=== PATIENT | female | born 1975 | race Caucasian/White ===

== ENCOUNTER 2017-05-14 15:31 | Emergency (ER) | payer MEDICAID, OTHER ==
[~2017-05-14] VITALS: Ht 160 cm; Wt 51.5 kg
[2017-05-14 15:34] VITALS: Ht 160 cm; Wt 51.5 kg
[2017-05-14] MEDS ORDERED: morphine 4 MG/ML VIAL IV STA (17:17)
[2017-05-14] MEDS ORDERED: ONDANSETRON 4 MG INJ IV STA (17:17)
[2017-05-14 18:21] LABS: BASOPHIL # 0.1 10^3/ul (0.0-0.1); BASOPHILS % 0.4 % (0.0-2.0); EOSINOPHILS # 0.2 10^3/ul (0.0-0.5); EOSINOPHILS % 1.9 % (0.0-7.0); HEMATOCRIT 40.6 % (37.0-47.0); HEMOGLOBIN 13.5 g/dl (12.0-16.0); LYMPHOCYTES # 3.1 10^3/ul (0.8-2.9); LYMPHOCYTES % 25.8 % (15.0-51.0); MEAN CORPUSCULAR HEMOGLOBIN 30.9 pg (29.0-33.0); MEAN CORPUSCULAR HGB CONC 33.3 g/dl (32.0-37.0); MEAN CORPUSCULAR VOLUME 92.9 fl (82.0-101.0); MEAN PLATELET VOLUME 10.6 fl (7.4-10.4); MONOCYTE # 0.5 10^3/ul (0.3-0.9); MONOCYTES % 4.4 % (0.0-11.0); NEUTROPHIL # 8.1 10^3/ul (1.6-7.5); NEUTROPHILS % 67.2 % (39.0-77.0); PLATELET COUNT 299 10^3/UL (140-415); RED BLOOD COUNT 4.37 10^6/ul (4.20-5.40); RED CELL DISTRIBUTION WIDTH 13.9 % (11.5-14.5); WHITE BLOOD COUNT 12.1 10^3/ul (4.8-10.8)
[2017-05-14 18:42] LABS: ALBUMIN 4.8 g/dl (3.3-4.9); ALBUMIN/GLOBULIN RATIO 1.54; BILIRUBIN,INDIRECT 0.6 mg/dl (0-1.1); BILIRUBIN,TOTAL 0.6 mg/dl (0.2-1.3); CALCIUM 9.7 mg/dl (8.4-10.2); CREATININE 0.83 mg/dl (0.44-1.00); POTASSIUM 4.1 mmol/L (3.5-5.1); TOTAL PROTEIN 7.9 g/dl (6.1-8.1)
[2017-05-14 18:46] LABS: ADD UMIC YES; UR ASCORBIC ACID NEGATIVE (NEGATIVE); UR BILIRUBIN (Dip) NEGATIVE (NEGATIVE); UR BLOOD (Dip) NEGATIVE (NEGATIVE); UR CLARITY SLIGHTLY CLOUDY (CLEAR); UR COLOR YELLOW (YELLOW); UR GLUCOSE (Dip) NEGATIVE (NEGATIVE); UR KETONES (Dip) 1+ mg/dL (NEGATIVE); UR LEUKOCYTE ESTERASE (Dip) 2+ Leu/ul (NEGATIVE); UR MUCUS FEW /HPF (NONE SEEN); UR NITRITE (Dip) NEGATIVE (NEGATIVE); UR RBC 4 /HPF (0-5); UR SPECIFIC GRAVITY (Dip) 1.028 (1.003-1.030); UR SQUAMOUS EPITHELIAL CELL FEW /HPF (FEW); UR TOTAL PROTEIN (Dip) 1+ mg/dl (NEGATIVE); UR UROBILINOGEN (Dip) 1+ mg/dL (NEGATIVE)
[2017-05-14] MEDS ORDERED: SOD CHLORIDE 0.9% 100 ML ONE (19:27)
[2017-05-14] MEDS ORDERED: IOHEXOL 300MG/ML 150 ML BTL ONE (19:27)
[2017-05-14] MEDS ORDERED: DIPHENHYDRAMINE 50 MG INJ IV ONE (20:30)
--- NOTE | 2017-05-14 20:33 | RADRPT ---
PROCEDURE: CT Abdomen and Pelvis with contrast. CLINICAL INDICATION: Abdominal pain TECHNIQUE: CT scan of the abdomen and pelvis with contrast was performed on a multi-detector high- resolution CT scanner. The patient was scanned following the uncomplicated intravenous administrati on of 90 cc of Omnipaque-300 Coronal and sagittal reformatted images were obtained from the axial s ource images. Images were reviewed on a high-resolution PACS workstation. The total exam CTDI equals 4.65 mGy and the total exam DLP equals 253.57 mGy-cm. One or more of the following dose reduction techniques were used: Automated exposure control. Adjustment of the mA and/or kV according to patient size. Use of iterative reconstruction technique. COMPARISON: CT abdomen and pelvis 01/21/2009 FINDINGS: CT abdomen: The lung bases are clear. The heart size is normal, without pericardial thickening or effusion. Th e liver is normal in size and density without focal mass or intrahepatic biliary dilatation. The sp poli is normal in size and homogeneous in density. The stomach is partially collapsed, but is gross ly unremarkable. The pancreas as visualized is normal. The gallbladder is unremarkable. There is no evidence for biliary dilatation. The adrenal glands are symmetric and normal. The kidneys are s ymmetrically unremarkable as well. No renal calculus or obstructive uropathy or mass lesion is seen . The aorta is of normal caliber. There is no retroperitoneal lymphadenopathy. The nava hepatis israel on is clear. The bowel and mesentery, as visualized, are equally unremarkable. CT pelvis: The small bowel loops situated within the pelvis are unremarkable. The appendix is normal. There is asymmetric enlargement of the right with two adjacent hypodensity measures up to 3 cm. The pelvic o rgans are normal. The pelvic sidewalls and inguinal regions are clear. The sigmoid colon and rectu m are unremarkable. No mass, lymphadenopathy, or free fluid is seen. No acute inflammation is seen . The bladder is normal. The surrounding osseous structures are unremarkable. No osteolytic or ost eoblastic lesion is detected. IMPRESSION: 1. No mass, lymphadenopathy, or focal acute inflammatory process is identified. 2. Normal appendix. 3. Prominent right ovary with two dominant cystic structures measures up to 3 cm likely representin g ovarian cysts. RPTAT: HHO .Gerardo Andersen MD, MD Date Time Electronically viewed and signed by .Gerardo Andersen MD, MD on 05/14/2017 20:33 .O/
[2017-05-14] MEDS ORDERED: KETOROLAC 30 MG INJ IV STA (20:45)
[2017-05-14] MEDS ORDERED: IBUP-1542 PO (20:47)
[2017-05-14] MEDS ORDERED: CEPH-443 PO (20:47)
[2017-05-14] MEDS ORDERED: HYDR-906 PO (20:47)
--- NOTE | 2017-05-14 20:51 | ERD ---
ER Documentation Chief Complaint Date/Time DATE: 05/14/17 TIME: 20:49 Chief Complaint right lower abdominal pain x 4 days HPI This 41-year-old female presents with right lower abdominal pain or pelvic pain for last 4 days. She thought she pulled a muscle in getting out of bed but the pain persists. She feels possibly chills. She has dysuria, vaginal discharge or bleeding. Last menstrual period was 2 weeks ago. ROS All systems reviewed and are negative except as per history of present illness. Medications Home Meds Active Scripts Cephalexin* (Keflex*) 500 Mg Capsule, 500 MG PO QID for 5 Days, CAP Prov:RAUL GUARDADO MD 05/14/17 Hydrocodone/Acetaminophen ([place] 5-325 Tablet) 1 Each Tablet, 1 TAB PO Q6H Y for PAIN, #7 TAB Prov:RAUL GUARDADO MD 05/14/17 Ibuprofen* (Motrin*) 600 Mg Tab, 600 MG PO Q6, #20 TAB Prov:RAUL GUARDADO MD 05/14/17 Allergies Allergies: Coded Allergies: No Known Drug Allergy (Verified Allergy, Unknown, 02/21/14) PMhx/Soc Medical and Surgical Hx: pt denies Surgical Hx History of Surgery: No Anesthesia Reaction: No Hx Neurological Disorder: No Hx Respiratory Disorders: No Hx Cardiac Disorders: No Hx Psychiatric Problems: No Hx Miscellaneous Medical Probl: Yes (fibromyalgia) Hx Alcohol Use: No Hx Substance Use: Yes (marijuana) Hx Tobacco Use: No Physical Exam Vitals Vital Signs Date Time Temp Pulse Resp B/P Pulse Ox O2 Delivery O2 Flow Rate FiO2 05/14/17 15:34 98.3 160 18 131/93 99 Physical Exam Const: [], [id number]-[id number] per Head: Atraumatic Eyes: Normal Conjunctiva ENT: Normal External Ears, Nose and Mouth. Neck: Full range of motion..~ No meningismus. Resp: Clear to auscultation bilaterally Cardio: Regular rate and rhythm, no murmurs Abd: Tender in the right groin area. No exquisite tenderness at McBurney's point no rebound no Allen sign. Positive pain with external rotation of the right hip., non distended. Normal bowel sounds Skin: No petechiae or rashes Back: No midline or flank tenderness Ext: No cyanosis, or edema Neur: Awake and alert Psych: Normal Mood and Affect Result Diagram: 05/14/17180905/14/171809 Results 24 hrs Laboratory Tests Test 05/14/17 18:10 White Blood Count 12.110^3/ul Red Blood Count 4.3710^6/ul Hemoglobin 13.5g/dl Hematocrit 40.6% Mean Corpuscular Volume 92.9fl Mean Corpuscular Hemoglobin 30.9pg Mean Corpuscular Hemoglobin Concent 33.3g/dl Red Cell Distribution Width 13.9% Platelet Count 99459^3/UL Mean Platelet Volume 10.6fl Neutrophils % 67.2% Lymphocytes % 25.8% Monocytes % 4.4% Eosinophils % 1.9% Basophils % 0.4% Nucleated Red Blood Cells % 0.0/100WBC Neutrophils # 8.110^3/ul Lymphocytes # 3.110^3/ul Monocytes # 0.510^3/ul Eosinophils # 0.210^3/ul Basophils # 0.110^3/ul Nucleated Red Blood Cells # 0.010^3/ul Urine Color YELLOW Urine Clarity SLIGHTLY CLOUDY Urine pH 5.0 Urine Specific [place] 1.028 Urine Ketones 1+mg/dL Urine Nitrite NEGATIVEmg/dL Urine Bilirubin NEGATIVEmg/dL Urine Urobilinogen 1+mg/dL Urine Leukocyte Esterase 2+Franky/ul Urine Microscopic RBC 4/HPF Urine Microscopic WBC 4/HPF Urine Squamous Epithelial Cells FEW/HPF Urine Mucus FEW/HPF Urine Hemoglobin NEGATIVEmg/dL Urine Glucose NEGATIVEmg/dL Urine Total Protein 1+mg/dl Sodium Level 139mmol/L Potassium Level 4.1mmol/L Chloride Level 104mmol/L Carbon Dioxide Level 26mmol/L Anion Gap 13 Blood Urea Nitrogen 16mg/dl Creatinine 0.83mg/dl Glucose Level 84mg/dl Calcium Level 9.7mg/dl Total Bilirubin 0.6mg/dl Direct Bilirubin 0.00mg/dl Indirect Bilirubin 0.6mg/dl Aspartate Amino Transf (AST/SGOT) 19IU/L Alanine Aminotransferase (ALT/SGPT) 29IU/L Alkaline Phosphatase 52IU/L Total Protein 7.9g/dl Albumin 4.8g/dl Globulin 3.10g/dl Albumin/Globulin Ratio 1.54 Lipase 89U/L Current Medications Medications (Trade) Dose Ordered Sig/Shani Route PRN Reason Start Time Stop Time Status Last Admin Dose Admin Morphine Sulfate (morphine) 4 mg ONCE STAT IV 05/14/17 17:17 05/14/17 17:22 DC 05/14/17 18:15 Ondansetron HCl (Zofran Inj) 4 mg ONCE STAT IV 05/14/17 17:17 05/14/17 17:22 DC 05/14/17 18:16 IV Flush 10 ml 10 ml STK-MED ONCE .ROUTE 05/14/17 19:27 05/14/17 19:28 DC 05/14/17 19:34 Sodium Chloride (NS) 100 ml @ ud STK-MED ONCE .ROUTE 05/14/17 19:27 05/14/17 19:28 DC 05/14/17 19:34 Iohexol (Omnipaque 300mg/ ml) 150 ml STK-MED ONCE .ROUTE 05/14/17 19:27 05/14/17 19:28 DC 05/14/17 19:34 Diphenhydramine HCl (Benadryl) 25 mg ONCE ONCE IV 05/14/17 20:30 05/14/17 20:31 DC 05/14/17 20:16 Cephalexin (Keflex) 500 mg ONCE ONCE PO 05/14/17 21:00 05/14/17 21:01 Ketorolac Tromethamine (Toradol) 30 mg ONCE STAT IV 05/14/17 20:45 05/14/17 20:46 DC Procedures/MDM Procedures or blood count of 12.1. CMP is normal. Urine shows positive signs of infection. HCG is negative. Patient was given morphine 1 mg IV and Zofran 4 mg IV. Given the uncertain cause a right lower quadrant pain and leukocytosis CT abdomen pelvis was performed which shows what appear to be 2 ovarian cysts in the right pelvis. There is no findings of sent for ovarian torsion, tubo-ovarian abscess, appendicitis. Patient felt better after observation treatment. She was given Keflex 500 mg by mouth and Toradol 30 mg IV. Patient was discharged home with short course of [place], ibuprofen and Keflex and primary care follow-up and return precautions. The patient was stable with no new complaints during the ER course. Clinically, there is no current evidence to suggest meningitis, sepsis, acute abdomen, pneumonia, acute coronary syndrome, pulmonary embolism, or any other emergent condition appearing to require further evaluation or hospitalization. The patient should certainly return for any new or worsening symptoms per the aftercare instructions. They should otherwise follow-up with her primary care doctor for reevaluation this week. Departure Diagnosis: Primary Impression: Ovarian cyst Laterality: right Qualified Code: N83.201 - Cyst of right ovary Additional Impressions: UTI (urinary tract infection) Urinary tract infection type: acute cystitis Hematuria presence: without hematuria Qualified Code: N30.00 - Acute cystitis without hematuria Abdominal pain Abdominal location: right lower quadrant Qualified Code: R10.31 - Right lower quadrant abdominal pain Condition: Stable Patient Instructions: Understanding Urinary Tract Infections (UTIs), Ovarian Cyst Additional Instructions: May be from urinary tract infection or ovarian cyst which should resolve over the next few days. Recheck for fevers, vomiting, worsening pain, new worsening symptoms. RAUL GUARDADO MD May 14, 2017 20:51
[2017-05-14] MEDS ORDERED: CEPHALEXIN 500 MG CAP PO ONE (21:00)
[2017-05-14 21:43] VITALS: BP 120/78; PULSE 70; RESP 18; TEMP 98.2
== END 2017-05-14 21:44 | disposition home or self-care (01) ==
LOC: FTE 15:31
DX: N83.201 Unspecified ovarian cyst, right side (principal); N30.00 Acute cystitis without hematuria; R10.2 Pelvic and perineal pain
CPT/HCPCS: 74177; 80053; 81001; 83690; 85025; 93005; J1200; J1885; J2270; J2405; Q9967; Z7610; 36415; 96374; 96375

== ENCOUNTER 2017-05-17 17:05 | Emergency (ER) | payer OTHER ==
[~2017-05-17] VITALS: Ht 152.4 cm; Wt 52.0 kg
[~2017-05-17 17:05] MED LIST: CEPH-443 PO; HYDR-906 PO; IBUP-1542 PO
[2017-05-17 17:06] VITALS: Ht 152.4 cm; Wt 52.0 kg
[2017-05-17] MEDS ORDERED: morphine 4 MG/ML VIAL IV STA (17:26)
[2017-05-17] MEDS ORDERED: ONDANSETRON 4 MG INJ IV STA (17:26)
--- NOTE | 2017-05-17 17:51 | ERD ---
ER Documentation Chief Complaint Date/Time DATE: 05/17/17 TIME: 17:47 Chief Complaint Pt presents with pelvic pain X 6 days. seen weds dx rupture cyst. HPI 41-year-old female presents to the emergency department complaining of right- sided pelvic pain for the past 6 days. Patient evaluated at this facility and received a CT which was unremarkable for acute abdomen on and was diagnosed with ovarian cyst. She states that she followed up with her [facility] [employer] for an ultrasound which will be next Friday. Patient states the pain is moderate to severe, constant pain in the right lower pelvic region. Patient denies any nausea, vomiting or diarrhea constipation, fevers. Patient has been taking Keflex for a urinary tract infection was diagnosed by her physician ROS All systems reviewed and are negative except as per history of present illness. Medications Home Meds Active Scripts Ibuprofen* (Motrin*) 600 Mg Tab, 600 MG PO Q6H Y for PAIN AND OR ELEVATED TEMP, #30 TAB Prov:SAMUEL GRIMES PA-C 05/17/17 Cephalexin* (Keflex*) 500 Mg Capsule, 500 MG PO QID for 5 Days, CAP Prov:RAUL GUARDADO MD 05/14/17 Hydrocodone/Acetaminophen ([place] 5-325 Tablet) 1 Each Tablet, 1 TAB PO Q6H Y for PAIN, #7 TAB Prov:RAUL GUARDADO MD 05/14/17 Ibuprofen* (Motrin*) 600 Mg Tab, 600 MG PO Q6, #20 TAB Prov:RAUL GUARDADO MD 05/14/17 Allergies Allergies: Coded Allergies: No Known Drug Allergy (Verified Allergy, Unknown, 02/21/14) PMhx/Soc Medical and Surgical Hx: pt denies Medical Hx, pt denies Surgical Hx History of Surgery: No Anesthesia Reaction: No Hx Neurological Disorder: No Hx Respiratory Disorders: No Hx Cardiac Disorders: No Hx Psychiatric Problems: No Hx Miscellaneous Medical Probl: No Hx Alcohol Use: No Hx Substance Use: No Hx Tobacco Use: No Physical Exam Vitals Vital Signs Date Time Temp Pulse Resp B/P Pulse Ox O2 Delivery O2 Flow Rate FiO2 05/17/17 19:07 98.4 67 16 99/53 100 Room Air 05/17/17 17:41 98.4 74 18 133/82 100 Room Air 05/17/17 17:06 99.7 98 18 116/82 99 Physical Exam GENERAL: well-developed/well-nourished, in no apparent distress, non-toxic appearing HENT: NC/AT, moist mucous membranes EYES: Conjunctiva normal NECK: Supple, no lymphadenopathy PULM: CTA bilaterally, no rales, rhonchi, or wheezing heard CV: Normal S1S2, RRR, good capillary refill GI: Soft, non-distended, tender to palpation right lower quadrant and right pelvic region Normal bowel sounds, no masses or organomegaly felt on exam No gross peritonitis, no bruits Negative Rovsing, negative Allen, negative McBurney's point, Negative CVAT BACK: No masses EXT: No clubbing, cyanosis, or edema NEURO: Alert and Orientated SKIN: Intact, normal turgor PSYCH: Normal mood and mentation Result Diagram: 05/17/17 1735 05/17/17 1735 Results 24 hrs Laboratory Tests Test 05/17/17 17:35 White Blood Count 9.310^3/ul Red Blood Count 4.0510^6/ul Hemoglobin 12.7g/dl Hematocrit 38.1% Mean Corpuscular Volume 94.1fl Mean Corpuscular Hemoglobin 31.4pg Mean Corpuscular Hemoglobin Concent 33.3g/dl Red Cell Distribution Width 13.7% Platelet Count 62688^3/UL Mean Platelet Volume 10.8fl Neutrophils % 68.8% Lymphocytes % 24.6% Monocytes % 4.4% Eosinophils % 1.5% Basophils % 0.4% Nucleated Red Blood Cells % 0.0/100WBC Neutrophils # 6.410^3/ul Lymphocytes # 2.310^3/ul Monocytes # 0.410^3/ul Eosinophils # 0.110^3/ul Basophils # 0.010^3/ul Nucleated Red Blood Cells # 0.010^3/ul Urine Color STRAW Urine Clarity CLEAR Urine pH 7.0 Urine Specific [place] 1.006 Urine Ketones NEGATIVEmg/dL Urine Nitrite NEGATIVEmg/dL Urine Bilirubin NEGATIVEmg/dL Urine Urobilinogen NEGATIVEmg/dL Urine Leukocyte Esterase NEGATIVELeu/ul Urine Microscopic RBC 1/HPF Urine Microscopic WBC 0/HPF Urine Bacteria FEW/HPF Urine Hemoglobin 1+mg/dL Urine Glucose NEGATIVEmg/dL Urine Total Protein NEGATIVEmg/dl Sodium Level 141mmol/L Potassium Level 4.0mmol/L Chloride Level 105mmol/L Carbon Dioxide Level 27mmol/L Anion Gap 13 Blood Urea Nitrogen 12mg/dl Creatinine 1.08mg/dl Glucose Level 86mg/dl Calcium Level 9.3mg/dl Total Bilirubin 0.2mg/dl Direct Bilirubin 0.00mg/dl Indirect Bilirubin 0.2mg/dl Aspartate Amino Transf (AST/SGOT) 19IU/L Alanine Aminotransferase (ALT/SGPT) 27IU/L Alkaline Phosphatase 47IU/L Total Protein 7.5g/dl Albumin 4.4g/dl Globulin 3.10g/dl Albumin/Globulin Ratio 1.41 Lipase 109U/L Current Medications Medications (Trade) Dose Ordered Sig/Shani Route PRN Reason Start Time Stop Time Status Last Admin Dose Admin Morphine Sulfate (morphine) 4 mg ONCE STAT IV 05/17/17 17:26 05/17/17 17:27 DC 05/17/17 17:44 Ondansetron HCl (Zofran Inj) 4 mg ONCE STAT IV 05/17/17 17:26 05/17/17 17:27 DC 05/17/17 17:43 Procedures/MDM This is a 41-year-old female complaining of right-sided pelvic pain for the past 6 days who has also been evaluated at this facility last . Patient received lab work which was unremarkable, urinalysis which showed evidence of infection and a CT that did not show any evidence of acute or surgical abdomen. No evidence of appendicitis, diverticulitis. Lab work was drawn. CBC did not show any evidence of leukocytosis or anemia. CMP did not show any evidence of renal, liver, or electrolyte abnormalities. Lipase was normal. UA did not show any evidence of hemoglobin or urinary tract infection. Patient was given pain relief in the ED and I have reassessed her she feels a lot better. Patient refused CT scan. I discussed with patient that she should follow-up with her primary care physician for further management. Discussed to continue the antibiotics. Discussed return to the ER for any worsening symptoms patient understands and agrees with plan. Departure Diagnosis: Primary Impression: Abdominal pain Condition: Stable SAMUEL GRIMES PA-C May 17, 2017 17:51
[2017-05-17 17:56] LABS: BASOPHILS % 0.4 % (0.0-2.0); EOSINOPHILS # 0.1 10^3/ul (0.0-0.5); EOSINOPHILS % 1.5 % (0.0-7.0); HEMATOCRIT 38.1 % (37.0-47.0); HEMOGLOBIN 12.7 g/dl (12.0-16.0); LYMPHOCYTES # 2.3 10^3/ul (0.8-2.9); LYMPHOCYTES % 24.6 % (15.0-51.0); MEAN CORPUSCULAR HEMOGLOBIN 31.4 pg (29.0-33.0); MEAN CORPUSCULAR HGB CONC 33.3 g/dl (32.0-37.0); MEAN CORPUSCULAR VOLUME 94.1 fl (82.0-101.0); MEAN PLATELET VOLUME 10.8 fl (7.4-10.4); MONOCYTE # 0.4 10^3/ul (0.3-0.9); MONOCYTES % 4.4 % (0.0-11.0); NEUTROPHIL # 6.4 10^3/ul (1.6-7.5); NEUTROPHILS % 68.8 % (39.0-77.0); PLATELET COUNT 290 10^3/UL (140-415); RED BLOOD COUNT 4.05 10^6/ul (4.20-5.40); RED CELL DISTRIBUTION WIDTH 13.7 % (11.5-14.5); WHITE BLOOD COUNT 9.3 10^3/ul (4.8-10.8)
[2017-05-17 18:02] LABS: ADD UMIC YES; UR ASCORBIC ACID NEGATIVE (NEGATIVE); UR BACTERIA FEW /HPF (NONE SEEN); UR BILIRUBIN (Dip) NEGATIVE (NEGATIVE); UR BLOOD (Dip) 1+ mg/dL (NEGATIVE); UR CLARITY CLEAR (CLEAR); UR COLOR STRAW (YELLOW); UR GLUCOSE (Dip) NEGATIVE (NEGATIVE); UR KETONES (Dip) NEGATIVE (NEGATIVE); UR LEUKOCYTE ESTERASE (Dip) NEGATIVE Leu/ul (NEGATIVE); UR NITRITE (Dip) NEGATIVE (NEGATIVE); UR RBC 1 /HPF (0-5); UR SPECIFIC GRAVITY (Dip) 1.006 (1.003-1.030); UR TOTAL PROTEIN (Dip) NEGATIVE (NEGATIVE); UR UROBILINOGEN (Dip) NEGATIVE (NEGATIVE)
[2017-05-17 18:13] LABS: ALBUMIN 4.4 g/dl (3.3-4.9); ALBUMIN/GLOBULIN RATIO 1.41; BILIRUBIN,INDIRECT 0.2 mg/dl (0-1.1); BILIRUBIN,TOTAL 0.2 mg/dl (0.2-1.3); CALCIUM 9.3 mg/dl (8.4-10.2); CREATININE 1.08 mg/dl (0.44-1.00); TOTAL PROTEIN 7.5 g/dl (6.1-8.1)
--- NOTE | 2017-05-17 18:55 | RADRPT ---
PROCEDURE: US Pelvis. CLINICAL INDICATION: Right pelvic pain. TECHNIQUE: Multiple sonographic images of the pelvis were obtained utilizing a transabdominal and endovaginal technique. The images were reviewed on a PACS workstation. COMPARISON: CT abdomen and pelvis May 14, 2017 FINDINGS: The uterus is anteverted and measures 7.1 x 5 x 4.4 cm. The endometrial echo complex is normal and m easures 10 mm. There is no evidence for free fluid. The right ovary has a normal echotexture and leni sures 3.8 x 3.4 x 2.7 cm. There is a benign, 1.6 x 1.6 x 1.1 cm right follicular cyst. The left ovar y has a normal echotexture and measures 2.8 x 2.4 x 1.9 cm. No adnexal masses are noted. IMPRESSION: Negative pelvic ultrasound. Normal follicular activity in both ovaries. RPTAT: EE .Lauryn Spann MD, MD Date Time Electronically viewed and signed by .Lauryn Spann MD, on 05/17/2017 18:55 .F/
[2017-05-17] MEDS ORDERED: IBUP-1542 PO (18:58)
[2017-05-17 19:07] VITALS: BP 99/53; PULSE 67; RESP 16; TEMP 98.4
== END 2017-05-17 19:09 | disposition home or self-care (01) ==
LOC: FTE 17:05
DX: R10.2 Pelvic and perineal pain (principal)
CPT/HCPCS: 36415; 76830; 76856; 80053; 81001; 83690; 85025; 87086; 96374; 96375; J2270; J2405; Z7502